=== PATIENT | male | born 1960 | race Caucasian/White ===

== ENCOUNTER 2016-11-30 15:27 | Emergency (ER) | payer MEDICAID, OTHER ==
[~2016-11-30] VITALS: Ht 170.2 cm; Wt 77.0 kg
[~2016-11-30 15:27] MED LIST: FLUO-191 PO; GABA300C PO; OLAN5Z PO
[2016-11-30] MEDS ORDERED: RISP3 PO (15:34)
[2016-11-30] MEDS ORDERED: DIPH25 PO (15:34)
[2016-11-30] MEDS ORDERED: QUET100T PO (15:34)
[2016-11-30] MEDS ORDERED: MOME13HF2 IH (15:34)
[2016-11-30] MEDS ORDERED: DSS100 PO (15:34)
[2016-11-30] MEDS ORDERED: ALBU8.5H IH (15:34)
[2016-11-30] MEDS ORDERED: LORA0.5T2 PO (15:34)
[2016-11-30] MEDS ORDERED: KETOROLAC TROMETHAMINE 60 MG/2 ML VIAL IM ONE (18:45)
[2016-11-30] MEDS ORDERED: HYDROCODONE/ACETAMINOPHEN 5-325 MG TABLET PO ONE (18:45)
[2016-11-30] MEDS ORDERED: METHOCARBAMOL 500 MG TABLET PO ONE (18:45)
[2016-11-30 19:34] VITALS: BP 140/83
== END 2016-11-30 19:39 | disposition home or self-care (01) ==
LOC: EMS 15:31
DX: M79.1 Myalgia (principal); R03.0 Elevated blood-pressure reading, without diagnosis of hypertension; J44.9 Chronic obstructive pulmonary disease, unspecified
CPT/HCPCS: 96372; 99283; J1885